=== PATIENT | female | born 1975 | race Caucasian/White ===

== ENCOUNTER → 2024-05-27 18:22 | Outpatient (REF) | payer BC, SELFPAY | LOC: MRI 18:22 | PROVIDERS: ATTENDING PHYSICIAN Podiatrist Foot & Ankle Surgery; FAMILY PHYSICIAN Family Medicine | DX: S93.491S Sprain of other ligament of right ankle, sequela (principal); S93.492S Sprain of other ligament of left ankle, sequela | CPT/HCPCS: 73721 ==

== ENCOUNTER → 2024-07-19 15:50 | Outpatient (REF) | payer BC, SELFPAY | LOC: RCS 15:50 | PROVIDERS: ATTENDING PHYSICIAN Nuclear Medicine Nuclear Cardiology; FAMILY PHYSICIAN Family Medicine | DX: R00.2 Palpitations (principal); R55 Syncope and collapse; R94.31 Abnormal electrocardiogram [ECG] [EKG] | CPT/HCPCS: 93306 ==